=== PATIENT | male | born 1960 | race Caucasian/White ===

== ENCOUNTER 2021-06-06 17:08 | Emergency (ER) | payer BC ==
[2021-06-06] MEDS ORDERED: Sodium Chloride 0.9% 10 ML Syringe FLUSH PRN (17:23)
--- NOTE | 2021-06-06 18:14 | EDM.PDOC ---
ED HPI GENERAL MEDICAL PROBLEM - General Chief Complaint: General Stated Complaint: [facility] Time Seen by Provider: 06/06/21 17:17 Source of Information: Reports: Patient, EMS History Limitations: Reports: No Limitations - History of Present Illness INITIAL COMMENTS - FREE TEXT/NARRATIVE: The patient presents by [facility] for syncope. The patient said for a few days he had some congestion and a mild sore throat and slight cough. He laid down for a nap. He woke up and went to sit down and talk with his and son and then he passed out at at the table. He did not fall or hit anything. He has never had this happen before. He was diaphoretic before it happened and he felt lightheaded. He was diaphoretic after. There was no seizure activity not ed. He has no fever, chills, chest pain, shortness of breath, abdominal pain, nausea or vomiting He does have a pacemaker. He also has a history of PE and he is on eliquies. Onset: Sudden Duration: Minutes: Location: Reports: Generalized Severity: Moderate Improves with: Reports: None Worsens with: Reports: None Associated Symptoms: Reports: Cough. Denies: Chest Pain, Fever/Chills, Headaches, Nausea/Vomiting, Shortness of Breath - Related Data Allergies Allergy/AdvReac Type Severity Reaction Status Date / Time Anuizyh-Psq-Svz Reductase Allergy Muscle Verified 06/06/21 18:19 Inhibitor Aches Home Meds: Home Meds Apixaban [Eliquis] 5 mg PO DAILY 06/06/21 [History] Esomeprazole [NexIUM] 40 mg PO DAILY 06/06/21 [History] Metoprolol Succinate [Toprol Xl] 50 mg PO DAILY 06/06/21 [History] Pravastatin [Pravachol] 40 mg PO DAILY 06/06/21 [History] atorvaSTATin [Lipitor] 40 mg PO DAILY 06/06/21 [History] Past Medical History Cardiovascular History: Reports: Hypertension, Pacemaker Other Cardiovascular History: 2011 Respiratory History: Reports: Bronchitis, Recurrent, PE Other Respiratory History: HX of PE in oct Musculoskeletal History: Reports: Back Pain, Chronic - Past Surgical History Musculoskeletal Surgical History: Reports: Knee Replacement, Other (See Below) Other Musculoskeletal Surgeries/Procedures:: Back surgery Social & Family History - Tobacco Use Tobacco Use Status *Q: Never Tobacco User ED ROS GENERAL - Review of Systems Review Of Systems: See Below Constitutional: Reports: No Symptoms HEENT: Reports: No Symptoms Respiratory: Reports: Cough. Denies: Shortness of Breath Cardiovascular: Reports: No Symptoms Endocrine: Reports: No Symptoms GI/Abdominal: Reports: No Symptoms : Reports: No Symptoms Musculoskeletal: Reports: No Symptoms ED EXAM, GENERAL - Physical Exam Exam: See Below Exam Limited By: No Limitations General Appearance: Alert, No Apparent Distress Ears: Normal External Exam Nose: Normal Inspection Head: Atraumatic, Normocephalic Neck: Normal Inspection Respiratory/Chest: No Respiratory Distress, Lungs Clear, Normal Breath Sounds Cardiovascular: Regular Rate, Rhythm, No Edema, No Murmur GI/Abdominal: Soft, Non-Tender, No Organomegaly, No Mass Back Exam: Normal Inspection Extremities: Normal Inspection #1 Interpretation EKG Date: 06/06/21 Time: 17:32 Rhythm: NSR Rate (Beats/Min): 66 [place]: Normal P-Wave: Present QRS: Normal ST-T: Normal QT: Normal Course - Vital Signs Last Recorded V/S: Last Vital Signs Temp 97.9 F 06/06/21 17:14 Pulse 65 06/06/21 17:14 Resp 16 06/06/21 17:14 BP 124/96 H 06/06/21 17:14 Pulse Ox 98 06/06/21 17:14 - Orders/Labs/Meds Orders: Active Orders 24 hr Category Date Time Status Cardiac Monitoring [RC] . DIRECTED Care 06/06/21 17:23 Active Peripheral IV Care [RC] . DIRECTED Care 06/06/21 17:25 Active Vital Signs [RC] Q15M Care 06/06/21 19:08 Ordered EPINEPHrine [Adrenalin] Med 06/06/21 19:08 Ordered 0.3 mg IM ONETIME PRN Famotidine [Pepcid] Med 06/06/21 19:08 Ordered 20 mg IVPUSH ONETIME PRN REGEN-COV 600mg/600mg in NS 0.9% @ 220 MLS/HR(100ml) Med 06/06/21 19:08 Ordered Casirivimab/Imdevimab [Regen-Cov 600-600 mg/10Ml (Eua)] 10 ml Sodium Chloride 0.9% [Normal Saline] 100 ml IV ONETIME Sodium Chloride 0.9% [Saline Flush] Med 06/06/21 17:23 Active 10 ml FLUSH ASDIRECTED PRN Sodium Chloride 0.9% [Saline Flush] Med 06/06/21 19:15 Ordered 30 ml FLUSH ASDIRECTED diphenhydrAMINE [Benadryl] Med 06/06/21 19:08 Ordered 50 mg IVPUSH ONETIME PRN methylPREDNISolone Sod Succ [Solu-MEDROL] Med 06/06/21 19:08 Ordered 125 mg IVPUSH ONETIME PRN Peripheral IV Insertion Adult [OM.PC] Stat Oth 06/06/21 17:23 Ordered Medication Orders Sodium Chloride (Sodium Chloride 0.9% 10 Ml Syringe) 10 ml FLUSH ASDIRECTED PRN PRN Reason: Keep Vein Open Last Admin: 06/06/21 17:55 Dose: 10 ml Documented by: JESSE Labs: Laboratory Tests 06/06/21 06/06/21 06/06/21 Range/Units 17:47 17:50 17:50 WBC 4.55 (4.23-9.07) K/mm3 RBC 5.72 (4.63-6.08) M/mm3 Hgb 17.2 (13.7-17.5) gm/dl Hct 51.2 H (40.1-51.0) % MCV 89.5 (79.0-92.2) fl MCH 30.1 (25.7-32.2) pg MCHC 33.6 (32.2-35.5) g/dl RDW Std Deviation 44.7 H (35.1-43.9) fL Plt Count 162 L (163-337) K/mm3 MPV 10.7 (9.4-12.3) fl Neut % (Auto) 58.3 (34.0-67.9) % Lymph % (Auto) 21.5 L (21.8-53.1) % Rankin % (Auto) 19.8 H (5.3-12.2) % Eos % (Auto) 0 L (0.8-7.0) Baso % (Auto) 0.2 (0.1-1.2) % Neut # (Auto) 2.65 (1.78-5.38) K/mm3 Lymph # (Auto) 0.98 L (1.32-3.57) K/mm3 Rankin # (Auto) 0.90 H (0.30-0.82) K/mm3 Eos # (Auto) 0.00 L (0.04-0.54) K/mm3 Baso # (Auto) 0.01 (0.01-0.08) K/mm3 D-Dimer, Quantitative 0.23 (0.19-0.50) mg/L Sodium (136-145) mEq/L Potassium (3.5-5.1) mEq/L Chloride (98-107) mEq/L Carbon Dioxide (21-32) mEq/L Anion Gap (5-15) BUN (7-18) mg/dL Creatinine (0.7-1.3) mg/dL Est Cr Clr Drug Dosing mL/min Estimated GFR (MDRD) (>60) mL/min BUN/Creatinine Ratio (14-18) Glucose (70-99) mg/dL Calcium (8.5-10.1) mg/dL Magnesium (1.8-2.4) mg/dL Total Bilirubin (0.2-1.0) mg/dL AST (15-37) U/L ALT (16-63) U/L Alkaline Phosphatase (46-116) U/L Troponin I (0.00-0.056) ng/mL C-Reactive Protein (<1.0) mg/dL Total Protein (6.4-8.2) g/dl Albumin (3.4-5.0) g/dl Globulin gm/dL Albumin/Globulin Ratio (1-2) SARS-CoV-2 RNA (LORAINE) Positive H (NEGATIVE) 06/06/21 Range/Units 17:50 WBC (4.23-9.07) K/mm3 RBC (4.63-6.08) M/mm3 Hgb (13.7-17.5) gm/dl Hct (40.1-51.0) % MCV (79.0-92.2) fl MCH (25.7-32.2) pg MCHC (32.2-35.5) g/dl RDW Std Deviation (35.1-43.9) fL Plt Count (163-337) K/mm3 MPV (9.4-12.3) fl Neut % (Auto) (34.0-67.9) % Lymph % (Auto) (21.8-53.1) % Rankin % (Auto) (5.3-12.2) % Eos % (Auto) (0.8-7.0) Baso % (Auto) (0.1-1.2) % Neut # (Auto) (1.78-5.38) K/mm3 Lymph # (Auto) (1.32-3.57) K/mm3 Rankin # (Auto) (0.30-0.82) K/mm3 Eos # (Auto) (0.04-0.54) K/mm3 Baso # (Auto) (0.01-0.08) K/mm3 D-Dimer, Quantitative (0.19-0.50) mg/L Sodium 136 (136-145) mEq/L Potassium 4.4 (3.5-5.1) mEq/L Chloride 99 (98-107) mEq/L Carbon Dioxide 29 (21-32) mEq/L Anion Gap 12.4 (5-15) BUN 18 (7-18) mg/dL Creatinine 1.4 H (0.7-1.3) mg/dL Est Cr Clr Drug Dosing 49.37 mL/min Estimated GFR (MDRD) 51 (>60) mL/min BUN/Creatinine Ratio 12.9 L (14-18) Glucose 106 H (70-99) mg/dL Calcium 8.3 L (8.5-10.1) mg/dL Magnesium 1.9 (1.8-2.4) mg/dL Total Bilirubin 0.3 (0.2-1.0) mg/dL AST 22 (15-37) U/L ALT 29 (16-63) U/L Alkaline Phosphatase 68 (46-116) U/L Troponin I < 0.017 (0.00-0.056) ng/mL C-Reactive Protein 1.4 H* (<1.0) mg/dL Total Protein 7.2 (6.4-8.2) g/dl Albumin 3.3 L (3.4-5.0) g/dl Globulin 3.9 gm/dL Albumin/Globulin Ratio 0.9 L (1-2) SARS-CoV-2 RNA (LORAINE) (NEGATIVE) Meds: Medications Generic Name Dose Route Start Last Admin Trade Name Freq PRN Reason Stop Dose Admin Sodium Chloride 10 ml 06/06/21 17:23 06/06/21 17:55 Sodium Chloride 0.9% 10 Ml Syringe FLUSH 10 ml ASDIRECTED PRN Administration Keep Vein Open - Re-Assessments/Exams Free Text/Narrative Re-Assessment/Exam: 06/06/21 18:22 I ordered an IV saline lock, EKG and labs. His EKG shows a NSR with no acute changes. 06/06/21 18:43 His CBC looks good. His D-dimer is negative. His creatinine is elevated at 1.4. His troponin is negative. His CRP is elevated at 1.4. I am awaiting the COVID test. I also had my nurse interrogate the pacemaker. 06/06/21 19:08 The interrogation showed an event in November but nothing recently. He is COVID positive. I have ordered regeneron. I spoke with the patient to provide information about REGEN-COV treatment. I offered them the Patient and Caregiver EUA REGEN-COV Fact Sheet to read and review. I stated the drug has been approved by an emergency use authorization (EUA} process and has not fully been FDA reviewed or approved. The patient meets the EUA requirements. I discussed there are other potential treatment options that are currently not FDA approved to treat COVID 19. Offered opportunity to ask questions and all questions were answered. The patient voiced understanding and agreed to proceed with treatment. Departure - Departure Time of Disposition: 19:10 Disposition: Home, Self-Care 01 Condition: Good Clinical Impression: COVID-19 Syncope Qualifiers: Syncope type: unspecified Qualified Code(s): R55 - Syncope and collapse - Discharge Information *PRESCRIPTION DRUG MONITORING PROGRAM REVIEWED*: Not Applicable *COPY OF PRESCRIPTION DRUG MONITORING REPORT IN PATIENT PETTY: Not Applicable Referrals: PCP,None [Primary Care Provider] - Forms: ED Department Discharge Additional Instructions: Drink plenty of fluids. Take tylenol or motrin as needed for fever. If you have trouble breathing try laying on your stomach that may help. Try to get a pulse oximeter. That will take your oxygen saturations and if you are consistently below 90% please return or of you feel worse. Try to quarantine as much as you can for 10 days. Sepsis Event Note (ED) - Focused Exam Vital Signs: Vital Signs Temp Pulse Resp BP Pulse Ox 06/06/21 17:14 97.9 F 65 16 124/96 H 98 - My Orders Last 24 Hours: My Active Orders 06/06/21 17:23 Cardiac Monitoring [RC] . DIRECTED Sodium Chloride 0.9% [Saline Flush] 10 ml FLUSH ASDIRECTED PRN Peripheral IV Insertion Adult [OM.PC] Stat 06/06/21 17:25 Peripheral IV Care [RC] . DIRECTED 06/06/21 19:08 Vital Signs [RC] Q15M EPINEPHrine [Adrenalin] 0.3 mg IM ONETIME PRN Famotidine [Pepcid] 20 mg IVPUSH ONETIME PRN REGEN-COV 600mg/600mg in NS 0.9% @ 220 MLS/HR(100ml) Casirivimab/Imdevimab [Regen-Cov 600-600 mg/10Ml (Eua)] 10 ml Sodium Chloride 0.9% [Normal Saline] 100 ml IV ONETIME diphenhydrAMINE [Benadryl] 50 mg IVPUSH ONETIME PRN methylPREDNISolone Sod Succ [Solu-MEDROL] 125 mg IVPUSH ONETIME PRN 06/06/21 19:15 Sodium Chloride 0.9% [Saline Flush] 30 ml FLUSH ASDIRECTED - Assessment/Plan Last 24 Hours: My Active Orders 06/06/21 17:23 Cardiac Monitoring [RC] . DIRECTED Sodium Chloride 0.9% [Saline Flush] 10 ml FLUSH ASDIRECTED PRN Peripheral IV Insertion Adult [OM.PC] Stat 06/06/21 17:25 Peripheral IV Care [RC] . DIRECTED 06/06/21 19:08 Vital Signs [RC] Q15M EPINEPHrine [Adrenalin] 0.3 mg IM ONETIME PRN Famotidine [Pepcid] 20 mg IVPUSH ONETIME PRN REGEN-COV 600mg/600mg in NS 0.9% @ 220 MLS/HR(100ml) Casirivimab/Imdevimab [Regen-Cov 600-600 mg/10Ml (Eua)] 10 ml Sodium Chloride 0.9% [Normal Saline] 100 ml IV ONETIME diphenhydrAMINE [Benadryl] 50 mg IVPUSH ONETIME PRN methylPREDNISolone Sod Succ [Solu-MEDROL] 125 mg IVPUSH ONETIME PRN 06/06/21 19:15 Sodium Chloride 0.9% [Saline Flush] 30 ml FLUSH ASDIRECTED
[2021-06-06] MEDS ORDERED: Famotidine 20 MG/2 ML SDV IVPUSH PRN (19:08)
[2021-06-06] MEDS ORDERED: EPINEPHrine 1 MG/ML SDV IM PRN (19:08)
[2021-06-06] MEDS ORDERED: diphenhydrAMINE 50 MG/ML SDV IVPUSH PRN (19:08)
[2021-06-06] MEDS ORDERED: methylPREDNISolone Sodium Succinate 125 MG/2 ML SDV IVPUSH PRN (19:08)
[2021-06-06] MEDS ORDERED: Sodium Chloride 0.9% 10 ML Syringe FLUSH SCH (19:15)
== END 2021-06-06 21:08 | disposition home or self-care (01) ==
LOC: JD.ED 17:08
DX: U07.1 COVID-19 (principal); R55 Syncope and collapse; I10 Essential (primary) hypertension; Z88.8 Allergy status to other drugs, medicaments and biological substances; Z79.01 Long term (current) use of anticoagulants; Z79.899 Other long term (current) drug therapy; Z86.711 Personal history of pulmonary embolism
CPT/HCPCS: 36415; 80053; 83735; 84484; 85025; 85379; 86140; 87635; 93005; 99284; M0243; Q0243; U0002

== ENCOUNTER 2021-08-23 09:13 | Day surgery (SDC) | payer BC ==
--- NOTE | 2021-08-23 08:18 | PCM.PREANE ---
Preanesthetic Assessment - Procedure Proposed Procedure: EGD and Screening Colonoscopy - Anesthesia/Transfusion/Family Hx Anesthesia History: Prior Anesthesia Reaction Type of Anesthesia Reaction: Anesthesia Awareness, Excessive Nausea/Vomiting Family History of Anesthesia Reaction: No Transfusion History: Prior Transfusion Without Reaction Intubation History: Unknown - Review of Systems General: No Symptoms Pulmonary: No Symptoms (snoring/Covid + May 2021/ recovered, ETOH: occasionally) Cardiovascular: No Symptoms (Pacemaker (history of Sick sinus syndrome), elevated lipids, history of SVT, HTN) Gastrointestinal: No Symptoms (GERD-controlled.), Difficulty Swallowing Neurological: No Symptoms (Back surgery:L5-S1, chronic back pain noted: 02/18), Syncope (2020 with blood clots and with Covid.) Other: Reports: None (History of DVT/History of pulmonary emboli (2020)- on ELIQUIS: last dose off 13 days.), Neck Pain - Physical Assessment NPO Status Date: 08/22/21 NPO Status Time: 22:00 Vital Signs: HR: 71 Sat: 97% Temp: 97.9 B/P: 139/93 Resp: 16 Height: 1.7 m Weight: 89 kg ASA Class: 3 Mental Status: Alert & Oriented x3 Airway Class: Mallampati = 2 Dentition: Reports: Normal Dentition, Caries Thyro-Mental Finger Breadths: 3 Mouth Opening Finger Breadths: 3 ROM/Head Extension: Full Lungs: Clear to Auscultation, Normal Respiratory Effort Cardiovascular: Regular Rate, Regular Rhythm, No Murmurs - Lab Values: All labs reviewed and noted and within acceptable ranges to proceed with scheduled procedure. - Imaging/EKG Impressions: EKG: SR rate= 95, PROLONGED QTI borderline, nonspecific T abnormalities anterior leads Echocardiogram: EF: 60-65% - Allergies Allergies/Adverse Reactions: Allergies Allergy/AdvReac Type Severity Reaction Status Date / Time doxycycline Allergy Stomach Verified 08/22/21 18:42 Ache Diqcomn-YHY-BoA Reductase Allergy Muscle Verified 08/22/21 18:42 Inhibitor Aches [Pedtcny-Bpl-Bwn Reductase Inhibitor] - Anesthesia Plan Pre-Op Medication Ordered: Beta Alfred Beta Alfred: Metoprolol Med Last Dose Date: 08/22/21 Med Last Dose Time: 18:00 - Acknowledgements Anesthesia Type Planned: MAC Pt an Appropriate Candidate for the Planned Anesthesia: Yes Alternatives and Risks of Anesthesia Discussed w Pt/Guardian: Yes Pt/Guardian Understands and Agrees with Anesthesia Plan: Yes PreAnesthesia Questionnaire HEENT History: Reports: Sinusitis, Other (See Below) Other HEENT History: pharyngitis, bronchitis Cardiovascular History: Reports: Blood Clots/VTE/DVT, High Cholesterol, Hypertension, Pacemaker Other Cardiovascular History: loop recorder Respiratory History: Reports: Bronchitis, Recurrent, PE Other Respiratory History: HX of PE in feb Gastrointestinal History: Reports: GERD, Other (See Below) Other Gastrointestinal History: esophageal stricture Genitourinary History: Reports: None SOFTWARE DEVELOPER INTERN History: Reports: None Musculoskeletal History: Reports: Arthritis, Back Pain, Chronic, Osteoarthritis, Other (See Below) Other Musculoskeletal History: right sciatica, lumbar radiculopathy, degnerative lumbar spinal stenosis Neurological History: Reports: Other (See Below) Other Neuro History: lumbar facet arthropathy, lumbar disc herniation, lumbar DDD, Psychiatric History: Reports: None Endocrine/Metabolic History: Reports: Obesity/BMI 30+, Vitamin D Deficiency Hematologic History: Reports: None Immunologic History: Reports: None Oncologic (Cancer) History: Reports: None Dermatologic History: Reports: None - Infectious Disease History Infectious Disease History: Reports: Novel Coronavirus - Past Surgical History Head Surgeries/Procedures: Reports: None HEENT Surgical History: Reports: None Cardiovascular Surgical History: Reports: Pacer Respiratory Surgical History: Reports: None GI Surgical History: Reports: Colonoscopy Female Surgical History: Reports: None Male Surgical History: Reports: None Endocrine Surgical History: Reports: None Neurological Surgical History: Reports: Lumbar Spine, Spinal Fusion Musculoskeletal Surgical History: Reports: Knee Replacement, Other (See Below) Other Musculoskeletal Surgeries/Procedures:: Back surgery Oncologic Surgical History: Reports: None Dermatological Surgical History: Reports: None - SUBSTANCE USE Tobacco Use Status *Q: Never Tobacco User Recreational Drug Use History: No - HOME MEDS Home Medications: Home Meds Acetaminophen [Tylenol] 650 mg PO Q4H PRN 08/22/21 [History] Cholecalciferol (Vitamin D3) [Vitamin D3] 1,000 unit PO DAILY 08/22/21 [History] Cyanocobalamin (Vitamin B-12) [Vitamin B-12] 1,000 mcg PO DAILY 08/22/21 [History] Esomeprazole Magnesium [Nexium] 40 mg PO DAILY 08/22/21 [History] Metoprolol Succinate 50 mg PO DAILY 08/22/21 [History] Multivit-Min/Ascorbic/Herb 124 [Airborne Chewable Tablet] 1 tab PO DAILY 08/22/21 [History] Pravastatin [Pravachol] 20 mg PO DAILY 08/22/21 [History] Vit C/Ascorb Sod/Multivit-Min [Emergen-C 500 mg Chewable Tab] 500 mg PO ASDIRECTED PRN 08/22/21 [History] Zinc Gluconate [Zinc] 30 mg PO DAILY 08/22/21 [History] amLODIPine [Norvasc] 5 mg PO DAILY 08/22/21 [History] - CURRENT (IN HOUSE) MEDS Current Meds: Current Medications Lactated Ringer's (Ringers, Lactated) 1,000 mls @ 125 mls/hr IV ASDIRECTED [place] Stop: 08/23/21 23:00 Lidocaine/Sodium Bicarbonate (Lidocaine 1%/Sod Bicarbonate In Ns 8.4% 1 Ml Syringe) 0.25 ml IDERM ONETIME PRN PRN Reason: Prior to IV Start Stop: 08/23/21 18:00 Sodium Chloride (Sodium Chloride 0.9% 10 Ml Syringe) 10 ml FLUSH ASDIRECTED PRN PRN Reason: Keep Vein Open Stop: 08/23/21 18:00
[~2021-08-23 09:13] MED LIST: Lactated Ringers 1,000 ML IV SCH; Lidocaine 1%/Sod Bicarbonate in NS 8.4% 1 ML Syringe IDERM PRN; Sodium Chloride 0.9% 10 ML Syringe FLUSH PRN
[2021-08-23] MEDS ORDERED: Lidocaine 1% 4 ML ONE (09:58)
[2021-08-23] MEDS ORDERED: Propofol 200 MG/20 ML SDV ONE ×3 (09:58→11:33)
[2021-08-23] MEDS ORDERED: fentaNYL 100 MCG/2 ML SDV ONE (09:59)
[2021-08-23] MEDS ORDERED: Midazolam 1 MG/ML 2 ML SDV ONE (09:59)
--- NOTE | 2021-08-23 12:03 | PCM48HPAN ---
Post Anesthesia Note - EVALUATION WITHIN 48HRS OF ANESTHETIC Vital Signs in Normal Range: Yes Patient Participated in Evaluation: Yes Respiratory Function Stable: Yes Airway Patent: Yes Cardiovascular Function Stable: Yes Hydration Status Stable: Yes Pain Control Satisfactory: Yes Nausea and Vomiting Control Satisfactory: Yes Mental Status Recovered: Yes Vital Signs: Last Vital Signs Temp 36.6 C 08/23/21 09:05 Pulse 73 08/23/21 09:05 Resp 16 08/23/21 09:05 BP 137/66 08/23/21 09:05 Pulse Ox 93 L 08/23/21 09:05
--- NOTE | 2021-08-23 12:34 | PROC ---
DATE OF OPERATION: 08/23/2021 SURGEON: Barb Gomez MD PREOPERATIVE DIAGNOSES: 1. Dysphagia. 2. Screening colonoscopy. POSTOPERATIVE DIAGNOSES: 1. Gastric polyp. 2. Minimal gastritis. 3. Diverticulosis. 4. Hemorrhoids. 5. Colonic polyps. OPERATION PERFORMED: 1. Esophagogastroduodenoscopy with biopsies. 2. Colonoscopy with polypectomy and biopsies. ESTIMATED BLOOD LOSS: Minimal. ANESTHESIA: Monitored anesthesia care. COMPLICATIONS: None. SUMMARY OF THE FINDINGS: The patient has single fundus polyp that was removed. Minimal gastritis. Biopsies taken. Several colonic polyps that were removed. Ileocecal valve biopsy, diverticulosis and grade 2 internal hemorrhoids. INDICATION AND CONSENT: The patient is 61 yo male. He has long history of dysphagia. He had a dilation in 2010, and has been having intermittent dysphagia that is constant and stable. The patient also had a colonoscopy 11 years ago, and at that point, the colonoscopy was normal, so he is here for another screening colonoscopy. We discussed risks, benefits, and alternatives of the procedures and informed consent was obtained. DESCRIPTION OF PROCEDURE: The patient was taken to the procedure room, placed in supine position. Time- out was performed. Bite block was placed and monitored anesthesia care was induced. We began with esophagogastroduodenoscopy. Scope was inserted into the mouth, went all the way to the second portion of duodenum which was normal. First portion of duodenum was normal. Duodenal bulb was normal. In the antrum, there was some mild inflammation marked by erythema, minimal. This was biopsied with cold forceps. Same phenomenon was going on in the gastric body and it was biopsied with cold forceps. On retroflexion, there was 1 about 3 mm pedunculated polyp in the fundus. This was removed with cold forceps. There was no hiatal hernia. Z-line was at 38 cm and was regular. Due to history of dysphagia, we took biopsies of the distal esophagus. However, the entire esophagus mucosa appeared normal. There were no other gross abnormalities of the esophagus. At this point, air was suctioned out and this procedure was concluded. We paid attention to colonoscopy next and perianal exam was unremarkable. Digital rectal exam was unremarkable. Scope was inserted and taken all the way to the cecum. Appendiceal orifice and ileocecal valve were photographed. There was mild erythema at the ileocecal valve. Therefore, biopsies were taken at this site. There maybe 1 mm polyp in the cecum. Polypectomy was performed with cold forceps. In the ascending colon, there was a 4 mm semi-pedunculated polyp which was removed with cold forceps. In the hepatic flexure, there were two 2 to 4 mm polyps that were semi-pedunculated. These also were removed with cold forceps. EBL was minimal. In the transverse colon, there was a 3 mm polyp that was removed with cold forceps. In the sigmoid colon, there were 2 polyps about 3 and 4 mm that were removed with cold forceps, so a total of 6 polyps were removed. EBL was minimal. There was some diverticulosis in the sigmoid colon as well as grade 2 hemorrhoids during retroflexion in the rectum. No other abnormalities. Air was suctioned out and procedure was concluded. The patient will be allowed to return home and follow up in clinic for postop discussion. RAMÍREZ /[id number] EDGAR
== END 2021-08-23 12:55 | disposition home or self-care (01) ==
LOC: JD.SDS 09:13
PROVIDERS: ATTEND Surgery
DX: Z12.11 Encounter for screening for malignant neoplasm of colon (principal); D12.3 Benign neoplasm of transverse colon; D12.0 Benign neoplasm of cecum; K52.9 Noninfective gastroenteritis and colitis, unspecified; D12.5 Benign neoplasm of sigmoid colon; K57.30 Diverticulosis of large intestine without perforation or abscess without bleeding; K31.7 Polyp of stomach and duodenum; K29.70 Gastritis, unspecified, without bleeding; K29.50 Unspecified chronic gastritis without bleeding; K64.9 Unspecified hemorrhoids; E78.2 Mixed hyperlipidemia; E55.9 Vitamin D deficiency, unspecified; E66.9 Obesity, unspecified; I10 Essential (primary) hypertension; Z88.8 Allergy status to other drugs, medicaments and biological substances; Z98.890 Other specified postprocedural states; Z79.899 Other long term (current) drug therapy; Z68.32 Body mass index [BMI] 32.0-32.9, adult
CPT/HCPCS: 00813; J2250; J2704; J3010; J7120

== ENCOUNTER 2021-11-15 08:51 | Day surgery (SDC) | payer BC ==
[~2021-11-15 08:51] MED LIST changes: +Sodium Chloride 0.9% 10 ML Syringe FLUSH SCH
[2021-11-15] MEDS ORDERED: Bupivacaine 0.5% 30 ML SDV ONE (09:16)
[2021-11-15] MEDS ORDERED: Lidocaine 1% with EPINEPHrine 1:100,000 10 ML MDV ONE ×2 (11:30→11:33)
[2021-11-15] MEDS ORDERED: Lidocaine 1% 5 ML VIAL ONE (11:44)
[2021-11-15] MEDS ORDERED: Ketamine 500 mg/10 ML MDV ONE (11:45)
[2021-11-15] MEDS ORDERED: Propofol 200 MG/20 ML SDV ONE ×3 (11:45→13:07)
[2021-11-15] MEDS ORDERED: Midazolam 1 MG/ML 2 ML SDV ONE ×2 (11:45→12:08)
[2021-11-15] MEDS ORDERED: ceFAZolin 1 GM Vial ONE (12:16)
[2021-11-15] MEDS ORDERED: Ondansetron 4 MG/2 ML SDV ONE (12:30)
[2021-11-15] MEDS ORDERED: Lactated Ringers 1,000 ML ONE (13:22)
== END 2021-11-15 15:00 | disposition home or self-care (01) ==
LOC: JD.SDS 08:51
PROVIDERS: ATTEND Surgery
DX: K42.9 Umbilical hernia without obstruction or gangrene (principal); I49.5 Sick sinus syndrome; K21.9 Gastro-esophageal reflux disease without esophagitis; I10 Essential (primary) hypertension; E55.9 Vitamin D deficiency, unspecified; E66.9 Obesity, unspecified; E78.5 Hyperlipidemia, unspecified; Z88.8 Allergy status to other drugs, medicaments and biological substances; Z88.1 Allergy status to other antibiotic agents; Z95.0 Presence of cardiac pacemaker; Z68.30 Body mass index [BMI] 30.0-30.9, adult; Z98.890 Other specified postprocedural states; Z79.899 Other long term (current) drug therapy; Z86.718 Personal history of other venous thrombosis and embolism; Z86.711 Personal history of pulmonary embolism
CPT/HCPCS: 49585; C1781; J0690; J2250; J2405; J2704; J3490; J7120; 00750

== ENCOUNTER 2022-05-20 07:24 | Emergency (ER) | payer BC ==
[2022-05-20] MEDS ORDERED: Sodium Chloride 0.9% 10 ML Syringe FLUSH PRN ×2 (07:59→08:34)
[2022-05-20] MEDS ORDERED: Iopamidol 755 Mg/ML 100 ML Bottle IVPUSH ONE (08:34)
[2022-05-20] MEDS ORDERED: Sodium Chloride 0.9% 100 ML IV SCH (08:45)
== END 2022-05-20 11:02 | disposition home or self-care (01) ==
LOC: JD.ED 07:24
DX: R42 Dizziness and giddiness (principal); R25.2 Cramp and spasm; E78.00 Pure hypercholesterolemia, unspecified; I10 Essential (primary) hypertension; E66.9 Obesity, unspecified; Z68.33 Body mass index [BMI] 33.0-33.9, adult; Z88.1 Allergy status to other antibiotic agents; Z88.6 Allergy status to analgesic agent; Z79.899 Other long term (current) drug therapy; Z86.16 Personal history of COVID-19
CPT/HCPCS: 36415; 71275; 80053; 84484; 85025; 85379; 93005; 93971; 99284; J3490; Q9967; 93010

== ENCOUNTER 2023-10-19 08:39 | Emergency (ER) | payer BC ==
[2023-10-19 10:02] LABS: A/G RATIO 0.9 (1-2); ALBUMIN 3.1 g/dl (3.4-5.0); ANION GAP 11.1 (5-15); BILIRUBIN TOTAL 0.6 mg/dL (0.2-1.0); BUN/CREATININE RATIO 16.7 (14-18); CALCIUM 8.5 mg/dL (8.5-10.1); CREATININE 1.2 mg/dL (0.7-1.3); EST CRCL DRUG DOSING (CG) 56.12 mL/min; POTASSIUM,K 4.1 mEq/L (3.5-5.1); PROTEIN TOTAL,TP 6.6 g/dl (6.4-8.2)
== END 2023-10-19 11:37 | disposition home or self-care (01) ==
LOC: JD.ED 08:39
DX: I82.4Z1 Acute embolism and thrombosis of unspecified deep veins of right distal lower extremity (principal); I10 Essential (primary) hypertension; E78.00 Pure hypercholesterolemia, unspecified; E66.9 Obesity, unspecified; Z88.8 Allergy status to other drugs, medicaments and biological substances; Z79.899 Other long term (current) drug therapy; Z86.16 Personal history of COVID-19; Z68.34 Body mass index [BMI] 34.0-34.9, adult
CPT/HCPCS: 36415; 80053; 93971-26-RT; 93971-RT; 99282; 99284

== ENCOUNTER 2024-02-07 16:34 | Emergency (ER) | payer BC ==
[2024-02-07 19:09] LABS: BASOPHILS ABSOLUTE AUTO 0.1 K/mm3 (0.0-0.2); BASOPHILS PERCENT AUTO 0.8 % (0.0-1.0); EOSINOPHILS ABSOLUTE AUTO 0.1 K/mm3 (0.0-0.4); EOSINOPHILS PERCENT AUTO 1.4 % (0.0-6.0); HEMATOCRIT 49.5 % (42.0-52.0); HEMOGLOBIN 16.4 gm/dl (14.0-18.0); IMMATURE GRAN ABSOLUTE AUTO 0.01 K/mm3 (0.00-0.05); IMMATURE GRAN PERCENT AUTO 0.2 % (0.0-0.4); LYMPHOCYTES ABSOLUTE AUTO 1.7 K/mm3 (1.0-4.8); LYMPHOCYTES PERCENT AUTO 26.9 % (24.0-44.0); MEAN CORPUSCULAR HEMOGLOBIN 30.5 pg (28.0-32.0); MEAN CORPUSCULAR HGB CONC 33.1 g/dl (32.0-36.0); MEAN CORPUSCULAR VOLUME 92.2 fl (83.0-99.0); MEAN PLATELET VOLUME 10.3 fl (9.4-12.4); MONOCYTES ABSOLUTE AUTO 0.7 K/mm3 (0.0-0.8); MONOCYTES PERCENT AUTO 11.7 % (0.0-8.0); NEUTROPHILS ABSOLUTE AUTO 3.8 K/mm3 (1.8-7.7); PLATELET COUNT,PLT 183 K/mm3 (150-400); RED BLOOD CELL COUNT 5.37 M/mm3 (4.52-5.90); WHITE BLOOD CELL COUNT,WBC 6.35 K/mm3 (3.9-11.3)
[2024-02-07 19:30] LABS: ALBUMIN 3.4 g/dl (3.4-5.0); ANION GAP 10.4 (5-15); BILIRUBIN TOTAL 0.5 mg/dL (0.2-1.0); BUN/CREATININE RATIO 12.1 (14-18); CALCIUM 8.7 mg/dL (8.5-10.1); CREATININE 1.4 mg/dL (0.7-1.3); EST CRCL DRUG DOSING (CG) 48.1 mL/min; POTASSIUM,K 4.4 mEq/L (3.5-5.1); PROTEIN TOTAL,TP 6.7 g/dl (6.4-8.2)
== END 2024-02-07 20:02 | disposition home or self-care (01) ==
LOC: JD.ED 16:34
DX: M71.21 Synovial cyst of popliteal space [Baker], right knee (principal); I10 Essential (primary) hypertension; K21.9 Gastro-esophageal reflux disease without esophagitis; E66.9 Obesity, unspecified; Z86.16 Personal history of COVID-19; Z79.01 Long term (current) use of anticoagulants; Z79.899 Other long term (current) drug therapy; Z88.1 Allergy status to other antibiotic agents; Z88.8 Allergy status to other drugs, medicaments and biological substances; Z68.33 Body mass index [BMI] 33.0-33.9, adult
CPT/HCPCS: 36415; 80053; 85025; 85379; 93971-26-RT; 93971-RT; 99283; 99284

== ENCOUNTER 2024-04-13 11:54 | Emergency (ER) | payer BC, MEDICARE, OTHER ==
[2024-04-13] MEDS: Ketorolac 30 MG/ML SDV IVPUSH ONE (13:00)
[2024-04-13] MEDS: Piperacillin/Tazobactam 4.5 GM in Sodium Chloride 0.9% 100 ML IV ONE (13:13)
[2024-04-13] MEDS: Lidocaine 1% with EPINEPHrine 1:100,000 20 ML MDV INJECT ONE (14:00)
== END 2024-04-13 15:38 | disposition home or self-care (01) ==
LOC: JD.ED 11:54
DX: K61.0 Anal abscess (principal); I10 Essential (primary) hypertension; M19.90 Unspecified osteoarthritis, unspecified site; E78.00 Pure hypercholesterolemia, unspecified; E66.9 Obesity, unspecified; Z88.8 Allergy status to other drugs, medicaments and biological substances; Z79.899 Other long term (current) drug therapy; Z86.16 Personal history of COVID-19; Z68.32 Body mass index [BMI] 32.0-32.9, adult
CPT/HCPCS: 96365; 96375; 99283; J1885; J2543; J3490; 99284